=== PATIENT | male | born 1960 | race Caucasian/White ===

== ENCOUNTER 2023-12-12 23:45 | Inpatient (IN) | payer OTHER, SELFPAY ==
[2023-12-12 20:10] VITALS: BP 163/105
--- NOTE | 2023-12-12 22:35 | EDRN ---
JORGE Allan placed IV.
[2023-12-12 22:36] LABS: % Eosinophils 1.5 % (0-6); % Immature Granulocytes 0.3 % (0-0.5); % Lymphocytes 20.6 % (20.5-51.1); % Monocytes 12.2 % (1.7-9.3); % Neutrophils 64.4 % (42.2-75.2); Absolute Basophils 0.1 10^3/uL (0-0.2); Absolute Eosinophils 0.1 10^3/uL (0-0.7); Absolute Lymphocytes 1.6 10^3/uL (1.2-3.4); Absolute Neutrophils 5.1 10^3/uL (1.4-6.5); Hematocrit 40.7 % (39.0-52.0); Mean Corp Hgb Conc. 34.4 g/dL (33.0-37.0); Mean Corpuscular Hgb 31.6 pg (27.0-31.0); Mean Corpuscular Volume 91.9 fL (80.0-94.0); Mean Platelet Volume 8.8 fL (7.4-10.4); Nucleated Red Blood Cells % 0 % (-); Platelet Count 361 10^3/uL (130-400); Red Blood Cell Count 4.43 10^6/uL (4.70-6.10); Red Cell Dist. Width 13.6 % (11.5-14.5)
[2023-12-12 22:47] LABS: INR 2.46; PT 26.6 Sec (11.4-14.6)
[2023-12-12 22:57] LABS: ALT (SGPT) 18 U/L (0-50); AST (SGOT) 18 U/L (17-59); Albumin 4.2 g/dl (3.5-5.0); Alkaline Phosphatase 71 U/L (38-126); Blood Urea Nitrogen 16 mg/dl (9-20); Calcium 9.5 mg/dl (8.4-10.2); Carbon Dioxide 23 mmol/L (22-30); Chloride 104 mmol/L (98-107); Glucose 114 mg/dl (70-99); Potassium 4.4 mmol/L (3.5-5.1); Sodium 139 mmol/L (135-145); Total Bilirubin 0.5 mg/dl (0.2-1.3); Total Protein 7.4 g/dl (6.3-8.2); eGFR > 60.00
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
[2023-12-12] MEDS: HEPARIN 7500 UNITS IV (23:44)
[2023-12-12] MEDS: HEPARIN 25000 UNITS/250 ML IV (23:46)
[2023-12-13 00:11] LABS: APTT 41.2 Sec (23.4-35.0)
[2023-12-13 01:31] VITALS: BP 160/87
[2023-12-13 01:34] VITALS: BMI 29.0
[2023-12-13] MEDS: SYNTHROID 150 MCG PO (05:12)
[2023-12-13 06:00] VITALS: BMI 29.0
[2023-12-13 07:43] VITALS: BP 129/77
[2023-12-13] MEDS: NORVASC 5 MG PO (07:56)
[2023-12-13] MEDS: ZESTRIL 20 MG PO (07:56)
[2023-12-13 08:05] LABS: Hematocrit 39.4 % (39.0-52.0); Hemoglobin 13.8 g/dL (13.0-18.0); Mean Corpuscular Hgb 31.7 pg (27.0-31.0); Mean Corpuscular Volume 90.6 fL (80.0-94.0); Mean Platelet Volume 9.6 fL (7.4-10.4); Platelet Count 348 10^3/uL (130-400); Red Blood Cell Count 4.35 10^6/uL (4.70-6.10); Red Cell Dist. Width 13.8 % (11.5-14.5); White Blood Cell Count 7.1 10^3/uL (4.8-10.8)
[2023-12-13 08:13] LABS: APTT > 200 Sec (23.4-35.0)
[2023-12-13 08:20] LABS: Blood Urea Nitrogen 13 mg/dl (9-20); Calcium 8.9 mg/dl (8.4-10.2); Carbon Dioxide 20 mmol/L (22-30); Chloride 105 mmol/L (98-107); Estimated Creatinine Clearance 102 ml/min; Glucose 116 mg/dl (70-99); Potassium 4.1 mmol/L (3.5-5.1); Sodium 136 mmol/L (135-145); eGFR > 60.00
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
--- NOTE | 2023-12-13 09:25 | W.PN.HOSP.TC ---
Addendum entered and electronically signed by Joleen Palencia MD, Resident 12/13/23 13:44:
At bedside to review discharge plan with patient. He is traveling back to [place] this Tuesday, and he already has an appointment scheduled for Tuesday at 1pm with his PCP Cara Bishop (phone [phone], fax [phone]). Will fax discharge
summary to PCP. 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 I prescribed lovenox to cover him for 2 weeks in case his appointment or travel gets delayed. Via teach back patient expressed
understanding of all of the above and he is agreeable with plan. He has no further questions at this time.
Addendum entered and electronically signed by Suleman Gamez MD 12/13/23 12:21:
I saw and evaluated the patient. I reviewed the resident�s note and agree with findings and plan as documented in the resident�s note.
Currently denies chest pain or shortness of breath.
NAD, awake and alert
RRR, normal S1/S2
CTAB
CN2-12 intact
trace LLE edema
LLE DVT:
-d/w'd heme
-transition to Lovenox 1mg/kg SC Q12H
Medically cleared for d/c.
Total time spent on d/c = 31 min. This included today's physical exam, progress note, review of laboratory and diagnostic data, preparation of discharge documents and prescriptions, and discussions about the pt's hospital course and discharge plan
with the patient and other bio medical technician involved in the patient's care.
Original Note:
Today's Communication/Plan
-
continue heparin, hematology consult
Assessment / Plan
Assessment / Plan
63yo M with PMH prior DVT on warfarin, HTN, HLD who presented to ED 12/11 for left thigh pain and suspected DVT.
LLE DVT
- Periph vasc US showed DVT of popliteal vein, superficial femoral vein, and inguinal lymphadenopathy
- Reports he has been on warfarin for '20 years' prior to this DVT
- Continue heparin drip- held this AM for PTT >200
- Hematology consulted, await recommendations
HTN
- Continue home lisinopril and amlodipine
HLD
- Continue home atorvastatin
Hypothyroidism
- Continue home levothyroxine
Code status: full
VTE PPX: heparin gtt
Diet: cholesterol lowering
Dispo planning: anticipate dc home when appropriate, pending clinical course
Anticipated Discharge: Within 24 hours
Subjective/Interval History
-
Date of Service: December 13, 2023
No acute events overnight. Feels well and is looking forward to going home. He said prior to coming into the hospital he new he had a DVT because he 'knows the feeling' and had left thigh pain, which still sore but improving. He feels it more when
he bears weight and walks compared to resting in bed. He denies lightheadedness, dizziness, chest pain, shortness of breath, nausea, vomiting, diarrhea, constipation. He is tolerating PO diet. He is ambulating without assistance. He reports at home
he walks independently and does not need cane or walker.
Objective Data
-
Labs:
Laboratory Results
12/12/23 12/12/23 12/13/23
22:29 23:35 06:31
WBC 8.0 7.1
Hgb 14.0 13.8
Hct 40.7 39.4
Plt Count 361 348
PT 26.6 H
INR 2.46
APTT 41.2 H > 200 H*
Sodium 139 136
Potassium 4.4 4.1
Chloride 104 105
Carbon Dioxide 23 20 L
BUN 16 13
Creatinine 0.9 0.8
Glucose 114 H 116 H
Calcium 9.5 8.9
Total Bilirubin 0.5
AST 18
ALT 18
Alkaline Phosphatase 71
Vital Signs:
Vital Signs
Temp Pulse Resp BP Pulse Ox
98.4 F 59 19 129/77 97
12/13/23 07:43 12/13/23 07:43 12/13/23 07:43 12/13/23 07:43 12/13/23 07:43
Review of Systems
-
History Source: Patient
All other systems: Reviewed and negative
Physical Exam
-
General: Well Developed, Well Nourished, No Apparent Distress, Comfortable and Conversant
HEENT: Normocephalic and Atraumatic
Respiratory: Clear to Auscultation and Non Labored Respirations
Cardiac: Regular Rhythm and S1/S2
GI: Soft, Nontender, Nondistended and Normal Bowel Sounds
Musculoskeletal: No Cyanosis, No Edema and Other (proximal/anterior left thigh tender to palpation; no erythema, edema, skin changes, or palpable mass)
Skin: Warm and Dry
Neuro: Awake, Alert, Oriented, AO x 3 and Nonfocal/Grossly Intact
Psych: Calm and Intact Judgement/Insight
Data Reviewed
-
Ultrasound: Report Reviewed by me and Discussed with Physician
Labs: Labs Reviewed by me, Discussed with Physician and Discussed with Nurse
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
[2023-12-13] MEDS: LOVENOX 100 MG SC (11:37)
[2023-12-13 13:15] VITALS: BP 115/70
--- NOTE | 2023-12-13 13:45 | W.DCSUMMARY ---
Addendum entered and electronically signed by Suleman Gamez MD 12/13/23 14:12:
Read, reviewed, and agree. See same day progress note for additional details.
Original Note:
Discharge Summary
Discharge Data
Date of Admission: 12/12/23
Date of Discharge: 12/13/23
-
Pending Results: No
Hospital Course
Discharging Physician : Dr. Palencia, Dr. Gamez
Disposition : Home
Primary care physician : Cara Bishop
Principal Discharge diagnosis : Deep vein thrombosis of left leg
Chronic Discharge diagnosis : Hypertension, hyperlipidemia, hypothyroidism, history of DVT
Hospital Course : Presented to ED for left thigh pain and suspicion for blood clot. Peripheral venous ultrasound obtained and confirmed presence of DVT. He was started on heparin drip, and transitioned to lovenox following day. Hematology was
consulted. On day of discharge he was stable. 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
Important imaging findings :
Periph venous US left lower extremity 12/11:
FINDINGS: Real-time grayscale and duplex (spectral analysis) ultrasound of the deep venous system of the left lower extremity demonstrates demonstrates left inguinal lymphadenopathy with a 2.6 x 2.3 x 0.8 cm node
There is nonocclusive deep venous thrombosis in the left popliteal vein and lower two thirds of the left superficial femoral vein
There is occlusive deep venous thrombosis in the upper third of the left superficial femoral vein
There is normal flow in the common femoral and posterior tibial veins
IMPRESSION:
There is nonocclusive deep venous thrombosis in the left popliteal vein and lower two thirds of the left superficial femoral vein
There is occlusive deep venous thrombosis in the upper third of the left superficial femoral vein
There is left inguinal lymphadenopathy
Procedure findings : N/A
Discharge Plan
-
Patient Disposition: Home (Routine Discharge)
Discharge Diagnosis/Procedures: Deep vein thrombosis of left leg
Condition: Good
Diet: Low Cholesterol
Activity: No restrictions and As tolerated
Driving Restrictions: As prior to admission
Bathing Restrictions: OK to Shower
Instructions: Foot Pumping Exercises, Enoxaparin, Deep vein thrombosis - Discharge instructions, How to give an anticoagulant shot
Referrals:
UNKNOWN - PT DOES,NOT KNOW [Family Provider] -
Additional Discharge Medication Instructions: New medications:
- Lovenox (also known as enoxaparin): Give 100mg subcutaneously every 12 hours.
It is very important that you call your Primary Care Provider and Nurse Intern to schedule appointments within 1 week of hospital discharge. They will determine your anticoagulation regimen moving forward to continue treating your blood clot and
prevent new ones from forming. We have provided a prescription for 2 weeks of lovenox, but you need to see your regular doctors for refills or medication changes.
Medication changes:
- Stop taking warfarin
Prescriptions:
New
enoxaparin 100 mg/mL Syringe
100 mg SC Q12H 14 Days Qty: 28 0RF
Continued
atorvastatin 20 mg tablet
20 mg PO HS
amlodipine 2.5 mg tablet
5 mg PO DAILY
lisinopril 10 mg tablet
20 mg PO DAILY
levothyroxine 150 mcg tablet
150 mcg PO DAILY
Discontinued
warfarin 4 mg Tablet
4 mg PO Q48H
warfarin 5 mg tablet
5 mg PO Q48H
Discharge Orders:
Discharge Patient (As Directed); Ordered 12/13/23
Ordered By: Joleen Palencia
Discharge Date and Time
Print Language: HUNGARIAN
== END 2023-12-13 14:06 | disposition home or self-care (01) | DRG 301 ==
LOC: 4 WEST ACU 23:45
PROVIDERS: Nurse Practitioner; Physician Assistant Medical; Student in an Organized Health Care Education/Training Program; ADMITTING PHYSICIAN Internal Medicine; ATTENDING PHYSICIAN Internal Medicine; CONSULT PHYSICIAN Internal Medicine Hematology & Oncology; EMERGENCY PHYSICIAN Emergency Medicine
DX: I82.432 Acute embolism and thrombosis of left popliteal vein (principal); I10 Essential (primary) hypertension; E78.5 Hyperlipidemia, unspecified; E03.9 Hypothyroidism, unspecified
CPT/HCPCS: 80048; 80053; 85025; 85027; 85610; 85730; 93971; 99285